=== PATIENT | male | born 1945 | race Caucasian/White ===

== ENCOUNTER → 2017-12-30 | Day surgery (SDC) | payer MEDICARE, OTHER ==
--- NOTE | 2017-12-28 12:08 | Diagnostic Imaging Report ---
PROCEDURE: Frontal and lateral views of the chest. COMPARISON: 11/18/14 INDICATIONS: PREOPERATIVE FOR FOOT SURGERY FINDINGS: Lines/tubes: New dual lead left chest wall cardiac device in place. Lungs: Low lung volumes. Increased right lower lung field opacification. Pleura: There is no significant pleural effusion or pneumothorax. Heart and mediastinum: The heart and the mediastinum are normal. Bones: No acute bony abnormality. Cervical spine fusion hardware. IMPRESSION: Increased right lower lung field opacification, representing atelectasis/scaring, while superimposed pneumonia cannot be excluded in the appropriate clinical setting. Dictated by: Pratik Mohan M.D. on 12/28/2017 at 12:11 Electronically approved by: Pratik Mohan M.D. on 12/28/2017 at 12:11
[2017-12-28 12:11] LABS: BASOPHILS # (AUTO) 0.1 (0.0-0.1); BASOPHILS % 0.4 % (0.0-1.0); EOSINOPHILS # (AUTO) 0.1 (0.0-0.4); HEMATOCRIT 43.5 % (38.2-49.6); HEMOGLOBIN 15.1 g/dL (14.0-18.0); LYMPHOCYTES # (AUTO) 1.1 (1.0-3.2); LYMPHOCYTES % 8.3 % (18.0-39.1); MEAN CORPUSCULAR HEMOGLOBIN 33.5 pg (28-32); MEAN CORPUSCULAR HGB CONC 34.7 g/dL (31-35); MEAN CORPUSCULAR VOLUME 96.5 fL (81-99); MONOCYTES # (AUTO) 0.9 (0.2-0.8); MONOCYTES % 6.6 % (4.4-11.3); NEUTROPHILS # (AUTO) 10.9 (2.1-6.9); NEUTROPHILS % 80.8 % (38.7-80.0); PLATELET COUNT 194 x10e3/uL (140-360); RED BLOOD COUNT 4.51 x10e6/uL (4.3-5.7); RED CELL DISTRIBUTION WIDTH 12.7 % (11.7-14.4)
[2017-12-28 12:34] LABS: ANION GAP 13.1 mmol/L (8-16); CALCIUM 10.2 mg/dL (8.4-10.2); CREATININE, SERUM 1.57 mg/dL (0.72-1.25); POTASSIUM 4.1 mmol/L (3.5-5.1)
[~2017-12-30] MED LIST: ADVAIR HFA; AFRIN15 M1 NS; BUPIVACAINE HCL 0.5% 10ML MPF VIAL INJ ONE; BUPROPION XL300 MG; CEFAZOLIN SOD 2 GM/D5W 50ML 50 ML IV ONE; DEXAMETHASONE SOD PHOS INJ 4 MG/ML VIAL ONE; DICLOFENAC SODI50 MG PO; FENTANYL CITRATE/PF 100MCG/2 ML INJ ONE; GENERLAC10 GM/15 M PO; GLIMEPIRIDE PO; GLIMEPIRIDE1 MG PO; LIDOCAINE HCL 2% LOCAL INJ 5 ML SDV VIAL INJ ONE; LOSARTAN POTASS25 MG PO; LOVENOX30 MG/0.3 SC; METOCLOPRAMIDE10 MG PO; MIDAZOLAM HCL 2 MG/2 ML VIAL ONE; MULTIVITAMIN1 EAC2 PO; NORCO 10MG-325MG1 EA PO; NOVOLOG MI100 UNITS/ SQ; OCEAN SPRAY; ONDANSETRON HCL INJ 2 MG/ML VIAL ONE; PRANDIN1 MG PO; PRIMIDONE50 MG; PROPOFOL IV EMULSION 10 MG/ML 20 ML VIAL ONE; PROPRANOLOL HCL40 MG PO; SEVOFLURANE INHAL SOLN 250 ML PEN BTL ONE; TESTOSTERONE; TORSEMIDE20 MG PO; VESICARE10 MG PO; VICTOZA 2-0.6 MG/0.1 SQ; Z BUPROPION HCL PO; Z METHOCARBAMOL PO; Z.0.CARVEDILOL25 MG PO; Z.0.FUROSEMIDE20 MG PO; Z.0.LANTUS100 UNIT/1 SQ; Z.0.OMEPRAZOLE20 MG PO; Z.0.SERTRALINE HCL10 PO; Z.0.SIMVASTATIN40 MG PO; Z.0.SPIRIVA18 MCG IH; Z.0.VICTOZA 3-0.6 MG SQ; Z.1.DIOVAN HCT 1601 PO; [UNRECOGNIZED DRUG - OTHER] PO
[2017-12-30 08:39] LABS: BASOPHILS # (AUTO) 0.1 (0.0-0.1); BASOPHILS % 0.7 % (0.0-1.0); EOSINOPHILS # (AUTO) 0.2 (0.0-0.4); HEMATOCRIT 40.2 % (38.2-49.6); HEMOGLOBIN 13.9 g/dL (14.0-18.0); LYMPHOCYTES # (AUTO) 1.6 (1.0-3.2); LYMPHOCYTES % 14.3 % (18.0-39.1); MEAN CORPUSCULAR HEMOGLOBIN 33.1 pg (28-32); MEAN CORPUSCULAR HGB CONC 34.6 g/dL (31-35); MEAN CORPUSCULAR VOLUME 95.7 fL (81-99); MONOCYTES # (AUTO) 0.9 (0.2-0.8); NEUTROPHILS # (AUTO) 7.8 (2.1-6.9); NEUTROPHILS % 71.1 % (38.7-80.0); PLATELET COUNT 172 x10e3/uL (140-360); RED CELL DISTRIBUTION WIDTH 12.8 % (11.7-14.4)
[2017-12-30 14:19] LABS: EOSINOPHILS % (MANUAL) 1 % (0-7); LYMPHOCYTES % (MANUAL) 22 % (19-48); METAMYELOCYTES % (MANUAL) 2 % (0-0); MONOCYTES % (MANUAL) 7 % (3.4-9.0); NEUTROPHILS % (MANUAL) 68 % (40-74)
[2017-12-30 14:21] LABS: ANISOCYTOSIS SLIGHT; PLATELET ESTIMATE ADEQUATE; PLATELET MORPHOLOGY COMMENT FEW LARGE; RBC MORPHOLOGY COMMENT NORMAL
--- NOTE | 2018-01-03 14:25 | Operative Report ---
DATE OF PROCEDURE: PREOPERATIVE DIAGNOSIS: Painful hardware with prominent bone, plantar aspect of the right foot. POSTOPERATIVE DIAGNOSIS: Painful hardware with prominent bone, plantar aspect of the right foot. TITLE OF OPERATIONS 1. Removal of the hardware fusion plate, dorsal aspect of the right foot. 2. Removal of bone spur, plantar aspect of the right foot. ANESTHESIA: General endotracheal. HEMOSTASIS: Right thigh tourniquet at 350 mmHg. PROCEDURE IN DETAIL: The patient was taken to the operating room in a nonsedated state, and placed upon the operating table in the supine position. Following induction of general anesthetic, the right lower extremity was elevated at 60 degrees to exsanguinate before inflating the pneumatic thigh tourniquet to 350 mmHg for hemostasis. The right lower extremity was placed on the operating table prior to performing the following procedure. PROCEDURE #1: Hardware removal, right foot. A linear longitudinal incision was made with fluoroscopic customer assistant to identify the plate and screws of the dorsal aspect of the right foot. the plate and screws were all removed. It was noted that the underlying tissue was well fused and well-healed. After removal, attention was directed to the plantar aspect of the foot where a large bony prominence was present. A separate incision was placed and that bony prominence was removed with a combination of sharp and blunt dissection and oscillating saw, osteotome and mallet. That having been accomplished, the area was irrigated. Deep closure was 3-0 Vicryl. Subcutaneous closure was 4-0 Vicryl and skin closure was 4-0 nylon. This area where the plate had been removed from the dorsal aspect of was treated in a similar fashion. It was closed with 3-0 Vicryl and 4-0 nylon, and blocked with 0.5 Marcaine. with vital signs stable, and apparent satisfactory condition, having tolerated the anesthetic and the procedure very well. Job#: [id number] MACI
== END | disposition home or self-care (01) ==
LOC: OR 11:44
PROVIDERS: ATTEND Podiatrist Foot Surgery
DX: T84.84XA Pain due to internal orthopedic prosthetic devices, implants and grafts, initial encounter (principal); M77.51 Other enthesopathy of right foot and ankle; I10 Essential (primary) hypertension; E11.9 Type 2 diabetes mellitus without complications; E66.01 Morbid (severe) obesity due to excess calories; I44.7 Left bundle-branch block, unspecified; F32.9 Major depressive disorder, single episode, unspecified; Y83.8 Other surgical procedures as the cause of abnormal reaction of the patient, or of later complication, without mention of misadventure at the time of the procedure; Z01.810 Encounter for preprocedural cardiovascular examination; Z01.812 Encounter for preprocedural laboratory examination; Z01.818 Encounter for other preprocedural examination; Z95.0 Presence of cardiac pacemaker
CPT/HCPCS: 20680; 28104; 36415 ×2; 71046; 80048; 82948; 85025 ×2; 93005; J1100; J2001; J2250; J2405; Q4100; 76000

== ENCOUNTER → 2018-11-06 | Outpatient (CLI) | payer MEDICARE, OTHER ==
[~2018-11-06] MED LIST changes: -BUPIVACAINE HCL 0.5% 10ML MPF VIAL INJ ONE; -CEFAZOLIN SOD 2 GM/D5W 50ML 50 ML IV ONE; -DEXAMETHASONE SOD PHOS INJ 4 MG/ML VIAL ONE; -FENTANYL CITRATE/PF 100MCG/2 ML INJ ONE; +IOPAMIDOL 200 MG/ML 20 ML VIAL IT ONE; +LIDOCAINE HCL 1% LOCAL INJ 20 ML VIAL ONE; -LIDOCAINE HCL 2% LOCAL INJ 5 ML SDV VIAL INJ ONE; -MIDAZOLAM HCL 2 MG/2 ML VIAL ONE; -ONDANSETRON HCL INJ 2 MG/ML VIAL ONE; -PROPOFOL IV EMULSION 10 MG/ML 20 ML VIAL ONE; -SEVOFLURANE INHAL SOLN 250 ML PEN BTL ONE
[2018-11-06 09:38] LABS: INR 0.86; PROTHROMBIN TIME 12.2 seconds (11.9-14.5)
[2018-11-06 09:39] LABS: PARTIAL THROMBOPLASTIN TIME 31.1 seconds (23.8-35.5)
--- NOTE | 2018-11-06 12:42 | Diagnostic Imaging Report ---
Date and Time: 11/06/2018 Procedure: Lumbar myelogram extruder operator helper: Dr. Ferreira Pre-operative diagnosis: Low back pain, radiculopathy Post-operative diagnosis: Low back pain, radiculopathy Conscious Sedation: None Additional Medications: Lidocaine 1% for local anesthesia Fluoroscopy time: 0.9 minutes Frontal Air Kerma: 147.4 mGy Contrast used: 15 cc Isovue-200 intrathecal Estimated blood loss: Minimal Specimens: None Implants: None Blood products administered: None Condition at completion: Stable Disposition: CT DISCUSSION: Informed consent was obtained and documented in the medical record after discussion of risks and benefits. The patient was placed in the prone position on the fluoroscopic table. The lower back was prepped and draped in standard sterile fashion. Under fluoroscopic guidance a suitable percutaneous approach to the thecal sac at the L4-L5 level was identified and the overlying skin was marked. 1% lidocaine was infiltrated into the skin and subcutaneous tissues for local anesthesia. Then under intermittent fluoroscopic guidance, a 22-gauge spinal needle was advanced into the thecal sac, with return of clear cerebrospinal fluid. Then a total of 15 cc of Isovue-200 was then gently injected under intermittent fluoroscopic guidance. The needle was removed and a frontal spot image was obtained. A crosstable lateral lumbar spine radiograph was then obtained. A sterile dressing was applied. The patient tolerated the procedure well without immediate complication. FINDINGS: Fleet Sales Associate radiograph shows 5 nonrib-bearing lumbar vertebral bodies. Disc space narrowing and marginal osteophytosis affecting essentially all imaged levels from the lower thoracic spine through the lumbosacral junction, with associated endplate sclerosis. Bilateral facet arthropathy at L5-S1. Intact sacroiliac joints. Multiple pelvic sidewall surgical clips partially visualized. Myelographic images show no significant lateral recess or ventral epidural filling defects. IMPRESSION: Successful lumbar spine myelogram for purposes of contrast injection into the thecal sac for lumbar spine CT, subsequently performed and separately reported. Signed by: Dr. Lloyd Ferreira M.D. on 11/06/2018 12:38 PM
== END ==
LOC: DX 08:10
PROVIDERS: ATTEND Family Medicine
DX: M54.17 Radiculopathy, lumbosacral region (principal)
CPT/HCPCS: 36415; 62304; 72132; 85049; 85610; 85730; Q9967; J2001

== ENCOUNTER 2022-06-16 10:26 | Emergency (ER) | payer MEDICARE, OTHER ==
[~2022-06-16] VITALS: Ht 182.9 cm; Wt 120.7 kg
[~2022-06-16 10:26] MED LIST changes: -IOPAMIDOL 200 MG/ML 20 ML VIAL IT ONE; -LIDOCAINE HCL 1% LOCAL INJ 20 ML VIAL ONE
== END 2022-06-16 11:11 | disposition home or self-care (01) ==
LOC: FSED 10:33
DX: I11.0 Hypertensive heart disease with heart failure (principal); I50.9 Heart failure, unspecified; E66.9 Obesity, unspecified; S22.32XA Fracture of one rib, left side, initial encounter for closed fracture; W18.2XXA Fall in (into) shower or empty bathtub, initial encounter; E11.9 Type 2 diabetes mellitus without complications; E78.5 Hyperlipidemia, unspecified; Z68.36 Body mass index [BMI] 36.0-36.9, adult; Z79.4 Long term (current) use of insulin; Z96.41 Presence of insulin pump (external) (internal); Z85.46 Personal history of malignant neoplasm of prostate
CPT/HCPCS: 99282

== ENCOUNTER 2022-12-11 22:25 | Emergency (ER) | payer MEDICARE, OTHER ==
[~2022-12-11] VITALS: Ht 182.9 cm; Wt 120.7 kg
[2022-12-11] MEDS ORDERED: SODIUM CHLORIDE 0.9% 500ML 500 ML IV STA (22:54)
[2022-12-11] MEDS ORDERED: HYDRALAZINE HCL 20 MG/ML VIAL IV STA (22:54)
[2022-12-11] MEDS ORDERED: ONDANSETRON HCL INJ 2MG/ML 2ML 2 MG/ML VIAL IV STA (22:54)
[2022-12-11] MEDS ORDERED: ONDANSETRON HCL INJ 2MG/ML 2ML 2 MG/ML VIAL ONE (22:55)
[2022-12-11] MEDS ORDERED: HYDRALAZINE HCL 20 MG/ML VIAL ONE (23:11)
[2022-12-11] MEDS ORDERED: SODIUM CHLORIDE 0.9% 500ML 500 ML ONE (23:12)
[2022-12-11 23:56] LABS: BASOPHILS % 0.6 % (0.0-1.0); EOSINOPHILS # (AUTO) 0.3 (0.0-0.4); EOSINOPHILS % 3.8 % (0.0-6.0); HEMATOCRIT 39.9 % (38.2-49.6); HEMOGLOBIN 13.7 g/dL (14.0-18.0); LYMPHOCYTES # (AUTO) 1.2 (1.0-3.2); LYMPHOCYTES % 17.2 % (18.0-39.1); MEAN CORPUSCULAR HEMOGLOBIN 33.5 pg (28-32); MEAN CORPUSCULAR HGB CONC 34.3 g/dL (31-35); MEAN CORPUSCULAR VOLUME 97.6 fL (81-99); MONOCYTES # (AUTO) 0.8 (0.2-0.8); MONOCYTES % 11.3 % (4.4-11.3); NEUTROPHILS # (AUTO) 4.8 (2.1-6.9); NEUTROPHILS % 66.5 % (38.7-80.0); PLATELET COUNT 176 x10e3/uL (140-360); RED BLOOD COUNT 4.09 x10e6/uL (4.3-5.7); RED CELL DISTRIBUTION WIDTH 12.1 % (11.7-14.4)
[2022-12-12 00:15] LABS: ALBUMIN 4.2 g/dL (3.5-5.0); ALBUMIN/GLOBULIN RATIO 1.6 (0.8-2.0); ANION GAP 14.7 mmol/L (8-16); CALCIUM 9.1 mg/dL (8.4-10.2); CREATININE, SERUM 1.04 mg/dL (0.72-1.25); POTASSIUM 3.7 mmol/L (3.5-5.1)
[2022-12-12 01:01] VITALS: O2SAT 93
[2022-12-12] MEDS ORDERED: ONDANSETRON ODT4 MG PO (01:16)
== END 2022-12-12 01:30 | disposition home or self-care (01) ==
LOC: FSED 22:50
DX: R42 Dizziness and giddiness (principal); S00.83XA Contusion of other part of head, initial encounter; W01.198A Fall on same level from slipping, tripping and stumbling with subsequent striking against other object, initial encounter; Y92.89 Other specified places as the place of occurrence of the external cause; I10 Essential (primary) hypertension; E11.9 Type 2 diabetes mellitus without complications; E78.5 Hyperlipidemia, unspecified; Z20.822 Contact with and (suspected) exposure to COVID-19; R94.31 Abnormal electrocardiogram [ECG] [EKG]; Z85.46 Personal history of malignant neoplasm of prostate
CPT/HCPCS: 36415; 70450; 71045; 72125; 80053 ×2; 82550; 82553 ×2; 83880; 84484 ×2; 85025 ×2; 93005; 99284; J0360; J2405; J7040; U0002

== ENCOUNTER 2024-08-15 15:00 | Outpatient (RCR) | payer MEDICARE, OTHER ==
[~2024-08-15 15:00] MED LIST changes: +ONDANSETRON ODT4 MG PO; +ULTRAM 50MG50 MG PO
== END 2024-08-17 ==
LOC: PT 15:00
PROVIDERS: ATTEND Family Medicine
DX: M47.26 Other spondylosis with radiculopathy, lumbar region (principal); M16.11 Unilateral primary osteoarthritis, right hip; R53.81 Other malaise

== ENCOUNTER 2024-08-20 13:19 | Outpatient (RCR) | payer MEDICARE, OTHER | END 2024-09-14 | LOC: PT 13:19 | PROVIDERS: ATTEND Family Medicine | DX: M16.11 Unilateral primary osteoarthritis, right hip (principal); M47.26 Other spondylosis with radiculopathy, lumbar region; R53.81 Other malaise ==

== ENCOUNTER 2024-10-21 13:43 | Emergency (ER) | payer MEDICARE, OTHER ==
[~2024-10-21] VITALS: Ht 182.9 cm; Wt 108.1 kg
[2024-10-21 13:50] VITALS: PULSE 71; RESP 20; TEMP 97.5; O2SAT 93
[2024-10-21] MEDS ORDERED: LOSARTAN POTAS100 MG PO (14:16)
[2024-10-21] MEDS ORDERED: LEXAPRO10 MG PO (14:16)
[2024-10-21] MEDS ORDERED: ABILIFY2 MG PO (14:16)
[2024-10-21] MEDS ORDERED: BUPROPION HCL100 MG PO (14:16)
== END 2024-10-21 14:18 | disposition home or self-care (01) ==
LOC: FSED 14:10
DX: I10 Essential (primary) hypertension (principal); I12.9 Hypertensive chronic kidney disease with stage 1 through stage 4 chronic kidney disease, or unspecified chronic kidney disease; E11.22 Type 2 diabetes mellitus with diabetic chronic kidney disease; N18.9 Chronic kidney disease, unspecified; I50.9 Heart failure, unspecified; E78.5 Hyperlipidemia, unspecified; Z85.46 Personal history of malignant neoplasm of prostate
CPT/HCPCS: 99284